=== PATIENT | female | born 1975 | race Two or more races ===

== ENCOUNTER 2024-04-10 13:00 | Emergency (ER) | payer OTHER ==
[~2024-04-10] VITALS: Ht 160 cm; Wt 90.0 kg
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
[2024-04-10 16:12] VITALS: BP 111/65; PULSE 90; RESP 18; TEMP 98; O2SAT 97
== END 2024-04-10 16:51 | disposition home or self-care (01) ==
LOC: ER 13:00 → EDBD 13:00 → ER 16:51
DX: S39.012A Strain of muscle, fascia and tendon of lower back, initial encounter (principal); Z86.718 Personal history of other venous thrombosis and embolism; V89.2XXA Person injured in unspecified motor-vehicle accident, traffic, initial encounter; Y93.89 Activity, other specified; Y92.410 Unspecified street and highway as the place of occurrence of the external cause; Y99.8 Other external cause status
CPT/HCPCS: 72100